=== PATIENT | female | born 1990 ===

== ENCOUNTER 2018-05-13 22:14 | Inpatient (IN) | payer SELFPAY ==
[2018-05-13] MEDS ORDERED: Dextrose 50% SYRINGE Inj (50 ml) ONE (22:52)
--- NOTE | 2018-05-13 22:56 | ED PDOC ---
HPI: Psych/Substance Abuse Time Seen by Provider: 05/13/18 22:27 Chief Complaint (Nursing): Psychiatric Evaluation Chief Complaint (Provider): Overdose ED Caveat: Acuity of Condition History Per: Family (Brother) History/Exam Limitations: no limitations Onset/Duration Of Symptoms: Hrs (x3) Current Symptoms Are (Timing): Still Present Suicide/Self Injury Attempted (Context): Ingestion Additional Complaint(s): 28 y/o female with no significant PMHx brought in by EMS for overdose, onset 3 hours ago. History obtained from brother due to patient acuity of condition. Brother states patient is going through "rough times" with a recent breakup and had sent him a message of her hand filled with 26 Benadryl (Sleep Aid) pills. Brother reports patient FaceTimed brother at approximately 7:40 PM and took pills while on the call. Brother states line cut immediately and began contacting patient's roommates with no response. Brother then called 911 and patient was then brought to the ED for further evaluation. Police found patient lying on the floor. Patient wrote suicide note left for family and friends stating she does not want to live anymore. Brother states she has never had a suicide attempt before and is not taking prescription meds. PMD: No Provider Past Medical History Reviewed: Historical Data, Nursing Documentation, Vital Signs Vital Signs: Last Vital Signs Temp 96.6 F L 05/13/18 22:18 Pulse 118 H 05/13/18 22:18 Resp 17 05/13/18 22:18 BP 137/102 H 05/13/18 22:18 Pulse Ox 100 05/13/18 22:18 - Medical History PMH: No Chronic Diseases - Surgical History Surgical History: No Surg Hx - Family History Family History: States: Unknown Family Hx - Social History Drugs: Prescription medications - Home Medications Home Medications: Ambulatory Orders Medication Instructions Recorded No Known Home Med 05/14/18 - Allergies Allergies/Adverse Reactions: Allergies Allergy/AdvReac Type Severity Reaction Status Date / Time No Known Allergies Allergy Verified 05/13/18 22:17 Review of Systems ROS Statement: Except As Marked, All Systems Reviewed And Found Negative Psych: Positive for: Other (Suicidal Attempt (Overdose)) Physical Exam - Reviewed Nursing Documentation Reviewed: Yes Vital Signs Reviewed: Yes - Physical Exam Appears: Negative for: Well (Drowsy but arousable to sternal rub) Head Exam: Positive for: ATRAUMATIC, NORMAL INSPECTION Skin: Positive for: Pallor Eye Exam: Positive for: Normal appearance, EOMI, PERRL ENT: Positive for: Normal ENT Inspection Neck: Positive for: Normal, Painless ROM Cardiovascular/Chest: Positive for: Tachycardia Respiratory: Positive for: Normal Breath Sounds Gastrointestinal/Abdominal: Positive for: Soft. Negative for: Tenderness Back: Positive for: Normal Inspection Extremity: Positive for: Other (Spontaneous, purposeful movements of the extremities. ) Neurologic/Psych: Negative for: Alert, Oriented - Laboratory Results Result Diagrams: 05/13/18 22:50 05/14/18 00:28 - ECG ECG Rhythm: Positive for: Sinus Tachycardia, Nonspecific Changes (Nonspecific ST changes). Negative for: ST/T Changes Rate: 106 O2 Sat by Pulse Oximetry: 100 (RA) Pulse Ox Interpretation: Normal - Critical Care Total Time (In Min): 60 Documented Critical Care: Time excludes all time spent performint seperately billable procedures Medical Decision Making Medical Decision Making: Time: 2248 A/P: 28 y/o female with suicide attempt by taking twenty-six 25 mg tablets of B enadryl -- Currently, patient is protecting airway. Not requiring intubation -- Patient on monitor -- Tox labs ordered. -- Will watch for signs of anticholinergic poisoning -- Will require ICU monitoring -- Type and Screen -- VBG -- EKG -- Acetaminophen -- Alcohol Serum -- BMP -- Urine Drug Screen -- LFT -- Salicylate -- ED Urine -- CBC with differentials -- PTT -- Prothrombin Time -- Glucose, POC -- Dextrose 50% Inj 50 ml IVP -- Tool Maintenance Worker -- 1:1 Observation -- Urinary Straight Catheterization -- Urinalysis 1AM --Patient with hypokalemia on VBG and from call from lab, K runs ordered 330AM --Patient now awake, alert, states she wants to go home --Patient not oriented to current situation --Likely anticholinergic side effect, will give ativan 2mg IV --Potassium now resulted as normal, K runs stopped --ICU aware of admission Scribe Attestation: Documented by Abdiel Woods acting as a scribe for Jared Ervin MD. Provider Scribe Attestation: All medical record entries made by the Scribe were at my direction and personally dictated by me. I have reviewed the chart and agree that the record accurately reflects my personal performance of the history, physical exam, medical decision making, and the department course for this patient. I have also personally directed, reviewed, and agree with the discharge instructions and disposition. Disposition - Clinical Impression Clinical Impression: Hypokalemia, Suicide attempt, Antihistamines overdose - Disposition Disposition Time: 01:30 Condition: SERIOUS
[2018-05-13] MEDS ORDERED: Dextrose 50% SYRINGE Inj (50 ml) IVP ONE (22:57)
[2018-05-13 23:04] LABS: BASO % 0.8 % (0.0-2.0); EOS # 0.1 K/uL (0.0-0.7); EOS % 2.4 % (0.0-4.0); HEMOGLOBIN 7.1 g/dL (12.0-16.0); LYMPH # 0.9 K/uL (1.0-4.3); LYMPH % 36.1 % (20.0-40.0); MEAN CELL VOLUME 98.4 fl (81.0-99.0); MEAN CORPUSCULAR HEMOGLOBIN 32.7 pg (27.0-31.0); MEAN CORPUSCULAR HGB CONC 33.2 g/dL (33.0-37.0); MEAN PLATELET VOLUME 7.4 fl (7.2-11.7); MONO # 0.2 K/uL (0.0-0.8); MONO % 7.6 % (0.0-10.0); NEUT # 1.3 K/uL (1.8-7.0); NEUT % 53.1 % (50.0-75.0); RBC 2.18 Mil/uL (3.80-5.20); RED CELL DISTRIBUTION WIDTH 13.6 % (11.5-14.5); WHITE BLOOD COUNT 2.5 K/uL (4.8-10.8)
[2018-05-13 23:11] LABS: INR 1.8
[2018-05-13 23:14] LABS: PARTIAL THROMBOPLASTIN TIME 37.2 Seconds (25.6-37.1)
[2018-05-13 23:16] LABS: ACETAMINOPHEN < 10.0 ug/ml (10.0-30.0); SALICYLATE < 1.0 mg/dl
[2018-05-13 23:24] LABS: URINE BILIRUBIN NEGATIVE (NEGATIVE); URINE BLOOD SMALL (NEGATIVE); URINE CLARITY CLEAR (Clear); URINE COLOR STRAW (YELLOW); URINE GLUCOSE (UA) 150 mg/dL (Normal); URINE LEUKOCYTE ESTERASE NEG Leu/uL (Negative); URINE PROTEIN 30 mg/dL (NEGATIVE); URINE UROBILINOGEN 0.2-1.0 mg/dL (0.2-1.0)
[2018-05-13 23:37] LABS: OPIATES, UR NEGATIVE (NEGATIVE); PHENCYCLIDINE, UR NEGATIVE (NEGATIVE)
[2018-05-13] MEDS ORDERED: Potassium CL 10 MEQ/50 ML 50 ML ONE (23:37)
[2018-05-13 23:40] LABS: BARBITURATES, UR NEGATIVE (NEGATIVE); BENZODIAZEPINES, UR NEGATIVE (NEGATIVE)
[2018-05-14] MEDS ORDERED: Potassium Chl 40 mEq in D5-1/2 1,000 ML IV SCH (00:15)
[2018-05-14] MEDS: Potassium CL 10 MEQ/50 ML 50 ML IVPB SCH ×3 (00:30→04:12)
[2018-05-14] MEDS ORDERED: Potassium CL 10 MEQ/50 ML 50 ML ONE (01:21)
--- NOTE | 2018-05-14 01:41 | CP.PCM.HP ---
History of Present Illness - History of Present Illness History of Present Illness: CC: Benadryl overdose HPI: This is a 28 y/o female with no chronic medical conditions who is brought in by EMS after overdose with benadryl earlier this evening in suicide attempt. Most history was from brother -- he noted she has been having some personal difficulties because of a breakup. While they were on a FaceTime call, she ap parently took 26 Benadryl pills. The brother tried to contact patient's roommates, and then called 911. Patient was found by police passed out on floor with suicide note saying she did not want to live anymore. Per brother, there have been no prior suicide attempts. Currently patient is awake, but not able to answer many questions. Does not have any complaints, and appears comfortable. ROS: Cannot obtain, as patient is not able to comprehend or answer questions clearly MHx/SHx: no significant history noted Allergies: NKDA Medications: Per med rec (not known to be on any Rx) Family Hx: Reviewed, not revealing Social Hx: Present on Admission - Present on Admission Any Indicators Present on Admission: No Past Patient History - Past Social History Drugs: Prescription medications Meds Allergies/Adverse Reactions: Allergies Allergy/AdvReac Type Severity Reaction Status Date / Time No Known Allergies Allergy Verified 05/13/18 22:17 Physical Exam - Constitutional Additional comments: awake, but still appears altered - Head Exam Head Exam: ATRAUMATIC, NORMOCEPHALIC - Eye Exam Eye Exam: EOMI - ENT Exam ENT Exam: Mucous Membranes Dry - Neck Exam Neck exam: Positive for: Full Rom - Respiratory Exam Respiratory Exam: Clear to Auscultation Bilateral, NORMAL BREATHING PATTERN - Cardiovascular Exam Cardiovascular Exam: Tachycardia, +S1, +S2 - GI/Abdominal Exam GI & Abdominal Exam: Normal Bowel Sounds, Soft - Extremities Exam Extremities exam: Positive for: normal inspection - Neurological Exam Neurological exam: Altered Additional comments: awakens, but cannot really participate in interview - Skin Skin Exam: Dry, Warm Results - Vital Signs Recent Vital Signs: Last Vital Signs Temp 96.6 F L 05/13/18 22:18 Pulse 106 H 05/13/18 23:17 Resp 17 05/13/18 22:18 BP 137/102 H 05/13/18 22:18 Pulse Ox 100 05/13/18 23:17 - Labs Result Diagrams: 05/13/18 22:50 05/14/18 00:28 Labs: Laboratory Results - last 24 hr 05/13/18 05/13/18 05/13/18 22:44 22:50 22:50 WBC 2.5 L RBC 2.18 L Hgb 7.1 L Hct 21.5 L MCV 98.4 MCH 32.7 H MCHC 33.2 RDW 13.6 Plt Count 130 MPV 7.4 Neut % (Auto) 53.1 Lymph % (Auto) 36.1 Green % (Auto) 7.6 Eos % (Auto) 2.4 Baso % (Auto) 0.8 Neut # (Auto) 1.3 L Lymph # (Auto) 0.9 L Green # (Auto) 0.2 Eos # (Auto) 0.1 Baso # (Auto) 0.0 PT INR APTT Potassium POC Glucose (mg/dL) Phosphorus Magnesium Urine Color Urine Clarity Urine pH Ur Specific [place] Urine Protein Urine Glucose (UA) Urine Ketones Urine Blood Urine Nitrate Urine Bilirubin Urine Urobilinogen Ur Leukocyte Esterase Urine RBC (Auto) Urine Microscopic WBC Salicylates < 1.0 Urine Opiates Screen Urine Methadone Screen Acetaminophen < 10.0 L Ur Barbiturates Screen Ur Phencyclidine Scrn Ur Amphetamines Screen U Benzodiazepines Scrn U Oth Cocaine Metabols U Cannabinoids Screen Blood Type O POSITIVE Antibody Screen Negative BBK History Checked No verified bt 05/13/18 05/13/18 05/13/18 22:50 22:50 23:08 WBC RBC Hgb Hct MCV MCH MCHC RDW Plt Count MPV Neut % (Auto) Lymph % (Auto) Green % (Auto) Eos % (Auto) Baso % (Auto) Neut # (Auto) Lymph # (Auto) Green # (Auto) Eos # (Auto) Baso # (Auto) PT 20.0 H INR 1.8 APTT 37.2 H Potassium POC Glucose (mg/dL) 63 L Phosphorus Magnesium Urine Color Urine Clarity Urine pH Ur Specific [place] Urine Protein Urine Glucose (UA) Urine Ketones Urine Blood Urine Nitrate Urine Bilirubin Urine Urobilinogen Ur Leukocyte Esterase Urine RBC (Auto) Urine Microscopic WBC Salicylates Urine Opiates Screen Negative Urine Methadone Screen Negative Acetaminophen Ur Barbiturates Screen Negative Ur Phencyclidine Scrn Negative Ur Amphetamines Screen Negative U Benzodiazepines Scrn Negative U Oth Cocaine Metabols Negative U Cannabinoids Screen Negative Blood Type Antibody Screen BBK History Checked 05/13/18 05/14/18 23:08 00:28 WBC RBC Hgb Hct MCV MCH MCHC RDW Plt Count MPV Neut % (Auto) Lymph % (Auto) Green % (Auto) Eos % (Auto) Baso % (Auto) Neut # (Auto) Lymph # (Auto) Green # (Auto) Eos # (Auto) Baso # (Auto) PT INR APTT Potassium 4.0 POC Glucose (mg/dL) Phosphorus 4.7 H Magnesium 2.1 Urine Color Straw Urine Clarity Clear Urine pH 6.0 Ur Specific [place] 1.011 Urine Protein 30 Urine Glucose (UA) 150 Urine Ketones Negative Urine Blood Small Urine Nitrate Negative Urine Bilirubin Negative Urine Urobilinogen 0.2-1.0 Ur Leukocyte Esterase Neg Urine RBC (Auto) 1 Urine Microscopic WBC < 1 Salicylates Urine Opiates Screen Urine Methadone Screen Acetaminophen Ur Barbiturates Screen Ur Phencyclidine Scrn Ur Amphetamines Screen U Benzodiazepines Scrn U Oth Cocaine Metabols U Cannabinoids Screen Blood Type Antibody Screen BBK History Checked - EKG Data EKG comments: no qt prolongation, only tachycardia Assessment & Plan (1) Antihistamines overdose Assessment and Plan: 28 y/o female with suicide attempt with benadryl; noted to have hypo K (severe). -admit to ICU -NPO, cont IVF -K is being repleted, re-check in AM -Serial EKGs to monitor Qtc prolongation per poison control -Psych consult when patient is awake and coherent -Patient does have some anemia -- if it has not been worked up, can be worked up as outpatient, no acute bleeding -DVT PPx -- SQ Lovenox Status: Acute (2) Hypokalemia Status: Acute (3) Suicide attempt Status: Acute (4) Anemia Status: Acute (5) DVT prophylaxis Status: Acute
[2018-05-14 02:28] LABS: BLOOD UREA NITROGEN 10 mg/dl (7-17); CALCIUM 9.8 mg/dL (8.4-10.2); GFR NON-AFRICAN AMERICAN > 60
[2018-05-14 02:29] LABS: ALBUMIN 4.4 g/dL (3.5-5.0)
[2018-05-14 02:30] LABS: ALT/SGPT 44 U/L (9-52); AST/SGOT 58 U/L (14-36); BILIRUBIN,DIRECT 0.3 mg/ml (0.0-0.4)
[2018-05-14] MEDS ORDERED: Sodium Chloride 0.9% 1,000 ML IV SCH (04:15)
[2018-05-14 04:55] VITALS: BMI 25.9
[2018-05-14 05:53] LABS: HEMOGLOBIN 15.8 g/dL (12.0-16.0); MEAN CELL VOLUME 96.1 fl (81.0-99.0); MEAN CORPUSCULAR HGB CONC 34.3 g/dL (33.0-37.0); RBC 4.8 Mil/uL (3.80-5.20); RED CELL DISTRIBUTION WIDTH 13.9 % (11.5-14.5); WHITE BLOOD COUNT 10.9 K/uL (4.8-10.8)
[2018-05-14 05:55] LABS: ALB/GLOB RATIO 1.1 (1.0-2.1); ALBUMIN 4.6 g/dL (3.5-5.0); ALT/SGPT 47 U/L (9-52); AST/SGOT 60 U/L (14-36); BLOOD UREA NITROGEN 10 mg/dl (7-17); GFR NON-AFRICAN AMERICAN > 60
--- NOTE | 2018-05-14 06:56 | CARD ---
APPROVED REPORT Date of service: 05/14/2018 EKG Measurement Heart [id number] <Conclusion> Sinus tachycardia Rightward axis Borderline ECG
[2018-05-14] MEDS ORDERED: Multivitamin (MVI) 10 ML, Thiamine 100 MG, Folic Acid 1 MG in Dextrose 5%/0.45% NS 1,00... IV ONE (07:30)
--- NOTE | 2018-05-14 07:44 | CARD ---
APPROVED REPORT Date of service: 05/14/2018 EKG Measurement Heart [id number] <Conclusion> Sinus tachycardia Otherwise normal ECG
--- NOTE | 2018-05-14 07:48 | CARD ---
APPROVED REPORT Date of service: 05/13/2018 EKG Measurement Heart [id number] <Conclusion> Sinus tachycardia Rightward axis Nonspecific ST changes Abnormal ECG
[2018-05-14 08:18] LABS: VENOUS BLOOD GAS BASE EXCESS -12.4 mmol/L (0.0-2.0); VENOUS BLOOD GAS PCO2 25 mmHg (40-60); VENOUS BLOOD GAS PO2 25 mm/Hg (30-55); VENOUS BLOOD PH 7.31 (7.32-7.43)
--- NOTE | 2018-05-14 10:10 | CT ---
Date of service: 05/13/2018 PROCEDURE: CT Cervical Spine without contrast HISTORY: overdose, unconcious on ground [employer] COMPARISON: None available. TECHNIQUE: Axial computed tomography images were obtained of the cervical spine without the use of intravenous contrast. Coronal and sagittal reformatted images were created and reviewed. Radiation dose: Total exam DLP = 323 mGy-cm. This CT exam was performed using one or more of the following dose reduction techniques: Automated exposure control, adjustment of the mA and/or kV according to patient size, and/or use of iterative reconstruction technique. FINDINGS: VERTEBRAE: No fracture. Normal alignment. No destructive bony lesion. DISCS/SPINAL CANAL/NEURAL FORAMINA: No significant central canal or neural foraminal stenosis. Discs heights are grossly preserved. PARASPINAL SOFT TISSUES: Unremarkable. OTHER FINDINGS: None. IMPRESSION: Unremarkable CT of the cervical spine. Concordant results (preliminary interpretation) provided by [facility].
--- NOTE | 2018-05-14 10:12 | RAD ---
Date of service: 05/13/2018 HISTORY: overdose COMPARISON: No prior. FINDINGS: LUNGS: No active pulmonary disease. PLEURA: No significant pleural effusion identified, no pneumothorax apparent. CARDIOVASCULAR: Normal. OSSEOUS STRUCTURES: No significant abnormalities. VISUALIZED UPPER ABDOMEN: Normal. OTHER FINDINGS: None. IMPRESSION: No active disease.
--- NOTE | 2018-05-14 10:12 | CT ---
Date of service: 05/13/2018 PROCEDURE: CT HEAD WITHOUT CONTRAST. HISTORY: overdose, unconcious on the floor SET ILLUSTRATOR COMPARISON: None available. TECHNIQUE: Axial computed tomography images were obtained through the head/brain without intravenous contrast. Radiation dose: Total exam DLP = 786 mGy-cm. This CT exam was performed using one or more of the following dose reduction techniques: Automated exposure control, adjustment of the mA and/or kV according to patient size, and/or use of iterative reconstruction technique. FINDINGS: HEMORRHAGE: No intracranial hemorrhage. BRAIN: No mass effect or edema. No atrophy or chronic microvascular ischemic changes. VENTRICLES: Unremarkable. No hydrocephalus. CALVARIUM: Unremarkable. PARANASAL SINUSES: Unremarkable as visualized. No significant inflammatory changes. MASTOID AIR CELLS: Unremarkable as visualized. No inflammatory changes. OTHER FINDINGS: None. IMPRESSION: Normal CT of the Head. Concordant results (preliminary interpretation) provided by [facility].
[2018-05-14] MEDS: Enoxaparin 40 mg Syringe SC SCH (11:43)
[2018-05-14] MEDS ORDERED: Influenza Vaccine 60 MCG/0.5 ML SYR (3 yr & up) IM ONE (11:51)
[2018-05-14 16:32] LABS: BASO # 0.1 K/uL (0.0-0.2); BASO % 0.8 % (0.0-2.0); EOS # 0.1 K/uL (0.0-0.7); EOS % 0.4 % (0.0-4.0); HEMOGLOBIN 14.4 g/dL (12.0-16.0); LYMPH # 2.1 K/uL (1.0-4.3); LYMPH % 16.4 % (20.0-40.0); MEAN CELL VOLUME 95.2 fl (81.0-99.0); MEAN CORPUSCULAR HEMOGLOBIN 32.4 pg (27.0-31.0); MEAN PLATELET VOLUME 7.8 fl (7.2-11.7); MONO % 8.1 % (0.0-10.0); NEUT # 9.3 K/uL (1.8-7.0); NEUT % 74.3 % (50.0-75.0); RBC 4.44 Mil/uL (3.80-5.20); RED CELL DISTRIBUTION WIDTH 13.8 % (11.5-14.5); WHITE BLOOD COUNT 12.5 K/uL (4.8-10.8)
--- NOTE | 2018-05-14 17:17 | CP.PCM.CON ---
History of Present Illness - History of Present Illness History of Present Illness: pt is a 28 y/o female currently not in formal psychiatric treatment , no hx of previous psychiatric hospitalization brought in by EMS after overdose with benadryl suicide attempt. As per pt brother -- he noted she has been having some personal difficulties because of a breakup. While they were on a FaceTime call, she apparently took 26 Benadryl pills. The brother tried to contact patient's roommates, and then called 911. Patient was found by police passed out on floor with suicide note saying she did not want to live anymore. pt on evaluation, very guarded and evasive reported she had no previous psychiatric treatment yet received counseling for few times at age 16 due to difficulties with relations with peers, . when asked why she is in the hospital pt denied any suicidal ideation or attempt denied overdose and denied leaving any suicidal notes , althought there is a note in the chart in which the patient has written arrangments for her , pt speech throughout the interview is very un derproductive , she stated she does not need any psychiatric help, does not feel comfortable to talk and refused to be admitted to the psychiatric unit as she denies any symptoms of depression, minimizing her recent suicide attempt and stating it was misunderstood pt denied any current psychotic symptoms , denied substance use , alcohol level noted on admission to be 290 spoke with mother atbed side upon pt consent who reported pt has taiwo severely depressed lately due to an unstable relationship Past Patient History - Past Medical History & Family History Past Medical History?: Yes - Past Social History Smoking Status: Never Smoked - MUSCULOSKELETAL/RHEUMATOLOGICAL Hx Falls: Yes - PSYCHIATRIC Hx Substance Use: No Meds Allergies/Adverse Reactions: Allergies Allergy/AdvReac Type Severity Reaction Status Date / Time No Known Allergies Allergy Verified 05/13/18 22:17 - Medications Medications: Current Medications Enoxaparin Sodium (Lovenox) 40 mg SC DAILY JUDSON; Protocol Last Admin: 05/14/18 11:43 Dose: Not Given Sodium Chloride (Sodium Chloride 0.9%) 1,000 mls @ 999 mls/hr IV .Q1H1M JUDSON Stop: 05/15/18 04:12 Last Admin: 05/14/18 04:02 Dose: 999 mls/hr Multivitamins/Vitamin C 10 ml/Thiamine HCl 100 mg/ Folic Acid 1 mg/ Dextro se/Sodium Chloride 1,011.2 mls @ 100 mls/hr IV .Q10H7M ONE Stop: 05/14/18 17:36 Last Admin: 05/14/18 09:10 Dose: 100 mls/hr Lorazepam (Ativan) 1 mg IVP Q6H PRN PRN Reason: anxiety/agitation/withdrawal Physical Exam - Psychiatric Exam Additional comments: pt seen in bed , guarded evasive poor eye contact speech underproductive , mood reported fine affect constricted , depressed pt denied her recent suicide attempt denied suicidal or homicidal ideation, denied perceptual disturbances, poor insight and poor impulse control Results - Vital Signs Recent Vital Signs: Last Vital Signs Temp 99.1 F 05/14/18 16:00 Pulse 105 H 05/14/18 16:00 Resp 22 05/14/18 16:00 BP 115/48 L 05/14/18 16:00 Pulse Ox 100 05/14/18 16:00 - Labs Result Diagrams: 05/14/18 04:45 05/14/18 04:45 Labs: Laboratory Results - last 24 hr 05/13/18 05/13/18 05/13/18 22:44 22:50 22:50 WBC 2.5 L RBC 2.18 L Hgb 7.1 L Hct 21.5 L MCV 98.4 MCH 32.7 H MCHC 33.2 RDW 13.6 Plt Count 130 MPV 7.4 Neut % (Auto) 53.1 Lymph % (Auto) 36.1 [place] % (Auto) 7.6 Eos % (Auto) 2.4 Baso % (Auto) 0.8 Neut # (Auto) 1.3 L Lymph # (Auto) 0.9 L [place] # (Auto) 0.2 Eos # (Auto) 0.1 Baso # (Auto) 0.0 PT INR APTT pO2 VBG pH VBG pCO2 VBG HCO3 VBG Total CO2 VBG O2 Sat (Calc) VBG Base Excess VBG Potassium Sodium Chloride Glucose Lactate FiO2 Crit Value Called To Crit Value Called By Crit Value Read Back Blood Gas Notified Time Potassium Carbon Dioxide Anion Gap BUN Creatinine Est GFR ( Amer) Est GFR (Non-Af Amer) POC Glucose (mg/dL) Random Glucose Calcium Phosphorus Magnesium Total Bilirubin Direct Bilirubin AST ALT Alkaline Phosphatase Total Protein Albumin Globulin Albumin/Globulin Ratio Venous Blood Potassium Urine Color Urine Clarity Urine pH Ur Specific [place] Urine Protein Urine Glucose (UA) Urine Ketones Urine Blood Urine Nitrate Urine Bilirubin Urine Urobilinogen Ur Leukocyte Esterase Urine RBC (Auto) Urine Microscopic WBC Salicylates < 1.0 Urine Opiates Screen Urine Methadone Screen Acetaminophen < 10.0 L Ur Barbiturates Screen Ur Phencyclidine Scrn Ur Amphetamines Screen U Benzodiazepines Scrn U Oth Cocaine Metabols U Cannabinoids Screen Alcohol, Quantitative Blood Type O POSITIVE Blood Type Confirm Antibody Screen Negative BBK History Checked No verified bt 05/13/18 05/13/18 05/13/18 22:50 22:50 23:08 WBC RBC Hgb Hct MCV MCH MCHC RDW Plt Count MPV Neut % (Auto) Lymph % (Auto) [place] % (Auto) Eos % (Auto) Baso % (Auto) Neut # (Auto) Lymph # (Auto) [place] # (Auto) Eos # (Auto) Baso # (Auto) PT 20.0 H INR 1.8 APTT 37.2 H pO2 VBG pH VBG pCO2 VBG HCO3 VBG Total CO2 VBG O2 Sat (Calc) VBG Base Excess VBG Potassium Sodium Chloride Glucose Lactate FiO2 Crit Value Called To Crit Value Called By Crit Value Read Back Blood Gas Notified Time Potassium Carbon Dioxide Anion Gap BUN Creatinine Est GFR ( Amer) Est GFR (Non-Af Amer) POC Glucose (mg/dL) 63 L Random Glucose Calcium Phosphorus Magnesium Total Bilirubin Direct Bilirubin AST ALT Alkaline Phosphatase Total Protein Albumin Globulin Albumin/Globulin Ratio Venous Blood Potassium Urine Color Urine Clarity Urine pH Ur Specific [place] Urine Protein Urine Glucose (UA) Urine Ketones Urine Blood Urine Nitrate Urine Bilirubin Urine Urobilinogen Ur Leukocyte Esterase Urine RBC (Auto) Urine Microscopic WBC Salicylates Urine Opiates Screen Negative Urine Methadone Screen Negative Acetaminophen Ur Barbiturates Screen Negative Ur Phencyclidine Scrn Negative Ur Amphetamines Screen Negative U Benzodiazepines Scrn Negative U Oth Cocaine Metabols Negative U Cannabinoids Screen Negative Alcohol, Quantitative Blood Type Blood Type Confirm Antibody Screen BBK History Checked 05/13/18 05/13/18 05/13/18 23:08 23:10 23:58 WBC RBC Hgb Hct MCV MCH MCHC RDW Plt Count MPV Neut % (Auto) Lymph % (Auto) [place] % (Auto) Eos % (Auto) Baso % (Auto) Neut # (Auto) Lymph # (Auto) [place] # (Auto) Eos # (Auto) Baso # (Auto) PT INR APTT pO2 25 L VBG pH 7.31 L VBG pCO2 25 L VBG HCO3 14.4 VBG Total CO2 13.4 L VBG O2 Sat (Calc) 41.4 VBG Base Excess -12.4 L VBG Potassium 1.1 L* Sodium 151.0 H Chloride 131.0 H Glucose 36 L* Lactate 0.6 L FiO2 21.0 Crit Value Called To Dr sandi cueva Crit Value Called By 292 Crit Value Read Back Y Blood Gas Notified Time 2314 Potassium Carbon Dioxide Anion Gap BUN Creatinine Est GFR ( Amer) Est GFR (Non-Af Amer) POC Glucose (mg/dL) 97 Random Glucose Calcium Phosphorus Magnesium Total Bilirubin Direct Bilirubin AST ALT Alkaline Phosphatase Total Protein Albumin Globulin Albumin/Globulin Ratio Venous Blood Potassium 1.1 L* Urine Color Straw Urine Clarity Clear Urine pH 6.0 Ur Specific [place] 1.011 Urine Protein 30 Urine Glucose (UA) 150 Urine Ketones Negative Urine Blood Small Urine Nitrate Negative Urine Bilirubin Negative Urine Urobilinogen 0.2-1.0 Ur Leukocyte Esterase Neg Urine RBC (Auto) 1 Urine Microscopic WBC < 1 Salicylates Urine Opiates Screen Urine Methadone Screen Acetaminophen Ur Barbiturates Screen Ur Phencyclidine Scrn Ur Amphetamines Screen U Benzodiazepines Scrn U Oth Cocaine Metabols U Cannabinoids Screen Alcohol, Quantitative Blood Type Blood Type Confirm Antibody Screen BBK History Checked 05/14/18 05/14/18 05/14/18 00:28 04:45 04:45 WBC 10.9 H D RBC 4.80 Hgb 15.8 D Hct 46.1 MCV 96.1 D MCH 33.0 H MCHC 34.3 RDW 13.9 Plt Count 284 D MPV Neut % (Auto) Lymph % (Auto) [place] % (Auto) Eos % (Auto) Baso % (Auto) Neut # (Auto) Lymph # (Auto) [place] # (Auto) Eos # (Auto) Baso # (Auto) PT INR APTT pO2 VBG pH VBG pCO2 VBG HCO3 VBG Total CO2 VBG O2 Sat (Calc) VBG Base Excess VBG Potassium Sodium 146 145 Chloride 106 107 Glucose Lactate FiO2 Crit Value Called To Crit Value Called By Crit Value Read Back Blood Gas Notified Time Potassium 4.0 4.2 Carbon Dioxide 26 24 Anion Gap 18 18 BUN 10 10 Creatinine 0.7 0.8 Est GFR ( Amer) > 60 > 60 Est GFR (Non-Af Amer) > 60 > 60 POC Glucose (mg/dL) Random Glucose 72 121 H Calcium 9.8 10.0 Phosphorus 4.7 H Magnesium 2.1 Total Bilirubin 0.3 0.3 Direct Bilirubin 0.3 AST 58 H 60 H ALT 44 47 Alkaline Phosphatase 62 64 Total Protein 8.7 H 8.9 H Albumin 4.4 4.6 Globulin 4.3 H 4.3 H Albumin/Globulin Ratio 1.0 1.1 Venous Blood Potassium Urine Color Urine Clarity Urine pH Ur Specific [place] Urine Protein Urine Glucose (UA) Urine Ketones Urine Blood Urine Nitrate Urine Bilirubin Urine Urobilinogen Ur Leukocyte Esterase Urine RBC (Auto) Urine Microscopic WBC Salicylates Urine Opiates Screen Urine Methadone Screen Acetaminophen Ur Barbiturates Screen Ur Phencyclidine Scrn Ur Amphetamines Screen U Benzodiazepines Scrn U Oth Cocaine Metabols U Cannabinoids Screen Alcohol, Quantitative 292 H Blood Type Blood Type Confirm Antibody Screen BBK History Checked 05/14/18 05:00 WBC RBC Hgb Hct MCV MCH MCHC RDW Plt Count MPV Neut % (Auto) Lymph % (Auto) [place] % (Auto) Eos % (Auto) Baso % (Auto) Neut # (Auto) Lymph # (Auto) [place] # (Auto) Eos # (Auto) Baso # (Auto) PT INR APTT pO2 VBG pH VBG pCO2 VBG HCO3 VBG Total CO2 VBG O2 Sat (Calc) VBG Base Excess VBG Potassium Sodium Chloride Glucose Lactate FiO2 Crit Value Called To Crit Value Called By Crit Value Read Back Blood Gas Notified Time Potassium Carbon Dioxide Anion Gap BUN Creatinine Est GFR ( Amer) Est GFR (Non-Af Amer) POC Glucose (mg/dL) Random Glucose Calcium Phosphorus Magnesium Total Bilirubin Direct Bilirubin AST ALT Alkaline Phosphatase Total Protein Albumin Globulin Albumin/Globulin Ratio Venous Blood Potassium Urine Color Urine Clarity Urine pH Ur Specific [place] Urine Protein Urine Glucose (UA) Urine Ketones Urine Blood Urine Nitrate Urine Bilirubin Urine Urobilinogen Ur Leukocyte Esterase Urine RBC (Auto) Urine Microscopic WBC Salicylates Urine Opiates Screen Urine Methadone Screen Acetaminophen Ur Barbiturates Screen Ur Phencyclidine Scrn Ur Amphetamines Screen U Benzodiazepines Scrn U Oth Cocaine Metabols U Cannabinoids Screen Alcohol, Quantitative Blood Type Blood Type Confirm O POSITIVE Antibody Screen BBK History Checked Assessment & Plan - Assessment and Plan (Free Text) Assessment: major depression severe alcohol abuse Plan: pt at current mental status continues to be a high suicide risk, pt refusing psychiatric treatment , will be referred to screening by [facility] for involuntary admission continue 1:1 observation for suicide risk
[2018-05-15 06:39] LABS: HEMOGLOBIN 13.2 g/dL (12.0-16.0); MEAN CELL VOLUME 96.2 fl (81.0-99.0); MEAN CORPUSCULAR HGB CONC 34.3 g/dL (33.0-37.0); RED CELL DISTRIBUTION WIDTH 13.5 % (11.5-14.5); WHITE BLOOD COUNT 7.2 K/uL (4.8-10.8)
[2018-05-15 06:50] LABS: BLOOD UREA NITROGEN 11 mg/dl (7-17); CALCIUM 8.8 mg/dL (8.4-10.2); GFR NON-AFRICAN AMERICAN > 60
[2018-05-15] MEDS: Enoxaparin 40 mg Syringe SC SCH (08:47)
--- NOTE | 2018-05-15 09:42 | CP.PCM.PN ---
Addendum entered and electronically signed by Maeve Bernard MD 05/15/18 13:27: Patient seen bedside . All chart and clinical data reviewed . Case discussed with resident .Agree with assessment and plan. Patient refusing voluntary psych admission and refused by [facility] for involuntary admission Will re consult again [facility] since patient is suicidal Waiting eval Original Note: Subjective - Date & Time of Evaluation Date of Evaluation: 05/15/18 Time of Evaluation: 09:42 - Subjective Subjective: Patient seen and examined at bedside. She is in no acute distress. She reports feeling well without any complaints. Patient denies suicidal ideation and plan during interview but is hesitant with holding a conversation. She denies chest pain, shortness of breath, abdominal pain, weakness, dizziness, and diarrhea. Objective - Vital Signs/Intake and Output Vital Signs (last 24 hours): Temp Pulse Resp BP Pulse Ox 97.7 F 75 19 106/67 98 05/15/18 08:04 05/15/18 08:04 05/15/18 08:04 05/15/18 08:04 05/15/18 08:04 - Medications Medications: Current Medications Enoxaparin Sodium (Lovenox) 40 mg SC DAILY JUDSON; Protocol Last Admin: 05/15/18 08:47 Dose: 40 mg Dextrose/Sodium Chloride (Dextrose 5%-0.9% Ns 500 Ml) 1,000 mls @ 100 mls/hr IV .Q10H JUDSON Stop: 05/15/18 17:53 Last Admin: 05/15/18 05:26 Dose: 100 mls/hr Lorazepam (Ativan) 1 mg IVP Q6H PRN PRN Reason: anxiety/agitation/withdrawal - Labs Labs: 05/15/18 05:50 05/15/18 05:50 PT 20.0 Seconds (9.8-13.1) H 05/13/18 22:50 INR 1.8 05/13/18 22:50 APTT 37.2 Seconds (25.6-37.1) H 05/13/18 22:50 - Constitutional Appears: Well, Non-toxic, No Acute Distress - ENT Exam ENT Exam: Mucous Membranes Moist - Respiratory Exam Respiratory Exam: Clear to Ausculation Bilateral, NORMAL BREATHING PATTERN. absent: Chest Wall Tenderness, Decreased Breath Sounds, Rales, Rhonchi, Wheezes, Respiratory Distress - Cardiovascular Exam Cardiovascular Exam: REGULAR RHYTHM, +S1, +S2. absent: Clicks, Diastolic murmur, Gallop, Irregular Rhythm, JVD, Rubs, Murmur - GI/Abdominal Exam GI & Abdominal Exam: Soft, Normal Bowel Sounds. absent: Distended, Firm, Guarding, Rigid, Tenderness, Mass, Organomegaly - Extremities Exam Extremities Exam: Normal Inspection. absent: Calf Tenderness, Joint Swelling, Pedal Edema, Tenderness - Neurological Exam Neurological Exam: Alert, Awake, Oriented x3 - Psychiatric Exam Psychiatric exam: Flat Affect. absent: Homicidal Ideation, Suicidal Ideation - Skin Skin Exam: Dry, Intact, Normal Color, Warm Assessment and Plan - Assessment and Plan (Free Text) Assessment: 28 y/o female with suicide attempt with benadryl; noted to have hypo K (severe) currently admitted involuntarily due to suicidal ideation to be re-evaluated by [facility] for involuntary admission. Plan: 1. Suicide attempt- Bendryl overdose. - Patient is now on Med/Surg. -Serial EKGs to monitor Qtc prolongation per poison control -Psych consult, appreciated- [facility] denied the patient. Requesting patient to be re-screened for involuntary psychiatric admission. - Continue 1:1 for safety. 2. Hypokalemia Acute - Potassium- 3.7 05/15 - Continue to monitor 3. Alcohol abuse Chronic - Alcohol level 292 - 05/14 - Continue to monitor electrolyte. 4. DVT PPx SQ Lovenox
--- NOTE | 2018-05-15 11:09 | CP.PCM.CON ---
History of Present Illness - History of Present Illness History of Present Illness: Psychiatry consult follow-up note HPI: 28 yo female presents s/p suicide attempt by overdose on Benadryl, was found by police with a suicide note stating that she did not want to live anymore. Patient continues to refuse psychiatric treatment or hospitalization. She continues to minimize her suicide attempt, stating "I just had a bad day" and "I didn't want to feel sad anymore." No AH/VH. On evaluation, patient is evasive and apathetic w/ continued depressed affect. Impression: 28 yo female presents s/p suicide attempt w/ suicide note; patient is currently refusing all psychiatric treatment and medications. -Recommend patient be re-screened for involuntary psychiatric admission -Continue 1:1 for safety Past Patient History - Past Medical History & Family History Past Medical History?: Yes - Past Social History Smoking Status: Never Smoked - MUSCULOSKELETAL/RHEUMATOLOGICAL Hx Falls: Yes - PSYCHIATRIC Hx Substance Use: No Meds Allergies/Adverse Reactions: Allergies Allergy/AdvReac Type Severity Reaction Status Date / Time No Known Allergies Allergy Verified 05/13/18 22:17 - Medications Medications: Current Medications Enoxaparin Sodium (Lovenox) 40 mg SC DAILY JUDSON; Protocol Last Admin: 05/15/18 08:47 Dose: 40 mg Dextrose/Sodium Chloride (Dextrose 5%-0.9% Ns 500 Ml) 1,000 mls @ 100 mls/hr IV .Q10H JUDSON Stop: 05/15/18 17:53 Last Admin: 05/15/18 05:26 Dose: 100 mls/hr Lorazepam (Ativan) 1 mg IVP Q6H PRN PRN Reason: anxiety/agitation/withdrawal Results - Vital Signs Recent Vital Signs: Last Vital Signs Temp 97.7 F 05/15/18 08:04 Pulse 75 05/15/18 08:04 Resp 19 05/15/18 08:04 BP 106/67 05/15/18 08:04 Pulse Ox 98 05/15/18 08:04 - Labs Result Diagrams: 05/15/18 05:50 05/15/18 05:50 Labs: Laboratory Results - last 24 hr 05/14/18 05/14/18 05/15/18 15:43 23:34 03:32 WBC 12.5 H RBC 4.44 Hgb 14.4 Hct 42.2 MCV 95.2 MCH 32.4 H MCHC 34.0 RDW 13.8 Plt Count 260 MPV 7.8 Neut % (Auto) 74.3 Lymph % (Auto) 16.4 L [place] % (Auto) 8.1 Eos % (Auto) 0.4 Baso % (Auto) 0.8 Neut # (Auto) 9.3 H Lymph # (Auto) 2.1 [place] # (Auto) 1.0 H Eos # (Auto) 0.1 Baso # (Auto) 0.1 Sodium Potassium Chloride Carbon Dioxide Anion Gap BUN Creatinine Est GFR ( Amer) Est GFR (Non-Af Amer) POC Glucose (mg/dL) 91 107 Random Glucose Calcium 05/15/18 05/15/18 05:50 05:50 WBC 7.2 RBC 4.00 Hgb 13.2 Hct 38.5 MCV 96.2 MCH 33.0 H MCHC 34.3 RDW 13.5 Plt Count 226 MPV Neut % (Auto) Lymph % (Auto) [place] % (Auto) Eos % (Auto) Baso % (Auto) Neut # (Auto) Lymph # (Auto) [place] # (Auto) Eos # (Auto) Baso # (Auto) Sodium 141 Potassium 3.7 Chloride 107 Carbon Dioxide 30 Anion Gap 8 L BUN 11 Creatinine 0.8 Est GFR ( Amer) > 60 Est GFR (Non-Af Amer) > 60 POC Glucose (mg/dL) Random Glucose 102 Calcium 8.8
[2018-05-16 06:41] LABS: HEMOGLOBIN 14.4 g/dL (12.0-16.0); MEAN CELL VOLUME 95.9 fl (81.0-99.0); MEAN CORPUSCULAR HEMOGLOBIN 32.4 pg (27.0-31.0); MEAN CORPUSCULAR HGB CONC 33.8 g/dL (33.0-37.0); RBC 4.43 Mil/uL (3.80-5.20); RED CELL DISTRIBUTION WIDTH 13.2 % (11.5-14.5); WHITE BLOOD COUNT 5.8 K/uL (4.8-10.8)
[2018-05-16 07:10] LABS: BLOOD UREA NITROGEN 10 mg/dl (7-17); CALCIUM 9.3 mg/dL (8.4-10.2); GFR NON-AFRICAN AMERICAN > 60
[2018-05-16 08:23] VITALS: BP 99/64; PULSE 59; RESP 20; TEMP 98.1; O2SAT 98
--- NOTE | 2018-05-16 09:34 | CP.PCM.DIS ---
Addendum entered and electronically signed by Maeve Bernard MD 05/16/18 16:31: Patient seen and examined bedside .All chart and clinical data reviewed . Case discussed with resident . Agree with assessment and discharge planning . Hemodynamically stable, afebrile. No acute issues overnight. patient agrees to go to psych unit voluntarily Will discharge to psych unit for management of her depression . Original Note: Provider - Provider Date of Admission: 05/14/18 00:12 Attending physician: Marylou Rodriguez MD Consults: Psychiatry- Dr. Duff and Dr. Humphrey. Time Spent in preparation of Discharge (in minutes): 30 Diagnosis - Discharge Diagnosis (1) Suicide attempt Status: Acute (2) Anemia Status: Acute (3) Antihistamines overdose Status: Acute (4) Hypokalemia Status: Acute Hospital Course - Lab Results Lab Results: Most Recent Lab Values WBC 5.8 K/uL (4.8-10.8) 05/16/18 05:30 RBC 4.43 Mil/uL (3.80-5.20) 05/16/18 05:30 Hgb 14.4 g/dL (12.0-16.0) 05/16/18 05:30 Hct 42.4 % (34.0-47.0) 05/16/18 05:30 MCV 95.9 fl (81.0-99.0) 05/16/18 05:30 MCH 32.4 pg (27.0-31.0) H 05/16/18 05:30 MCHC 33.8 g/dL (33.0-37.0) 05/16/18 05:30 RDW 13.2 % (11.5-14.5) 05/16/18 05:30 Plt Count 222 K/uL (130-400) 05/16/18 05:30 MPV 7.8 fl (7.2-11.7) 05/14/18 15:43 Neut % (Auto) 74.3 % (50.0-75.0) 05/14/18 15:43 Lymph % (Auto) 16.4 % (20.0-40.0) L 05/14/18 15:43 Glynn % (Auto) 8.1 % (0.0-10.0) 05/14/18 15:43 Eos % (Auto) 0.4 % (0.0-4.0) 05/14/18 15:43 Baso % (Auto) 0.8 % (0.0-2.0) 05/14/18 15:43 Neut # (Auto) 9.3 K/uL (1.8-7.0) H 05/14/18 15:43 Lymph # (Auto) 2.1 K/uL (1.0-4.3) 05/14/18 15:43 Glynn # (Auto) 1.0 K/uL (0.0-0.8) H 05/14/18 15:43 Eos # (Auto) 0.1 K/uL (0.0-0.7) 05/14/18 15:43 Baso # (Auto) 0.1 K/uL (0.0-0.2) 05/14/18 15:43 PT 20.0 Seconds (9.8-13.1) H 05/13/18 22:50 INR 1.8 05/13/18 22:50 APTT 37.2 Seconds (25.6-37.1) H 05/13/18 22:50 pO2 25 mm/Hg (30-55) L 05/13/18 23:10 VBG pH 7.31 (7.32-7.43) L 05/13/18 23:10 VBG pCO2 25 mmHg (40-60) L 05/13/18 23:10 VBG HCO3 14.4 mmol/L 05/13/18 23:10 VBG Total CO2 13.4 mmol/L (22-28) L 05/13/18 23:10 VBG O2 Sat (Calc) 41.4 % (40-65) 05/13/18 23:10 VBG Base Excess -12.4 mmol/L (0.0-2.0) L 05/13/18 23:10 VBG Potassium 1.1 mmol/L (3.6-5.2) L* 05/13/18 23:10 Sodium 151.0 mmol/L (132-148) H 05/13/18 23:10 Chloride 131.0 mmol/L (98-107) H 05/13/18 23:10 Glucose 36 mg/dL (65-105) L* 05/13/18 23:10 Lactate 0.6 mmol/L (0.7-2.1) L 05/13/18 23:10 FiO2 21.0 % 05/13/18 23:10 Crit Value Called To Dr sandi cueva 05/13/18 23:10 Crit Value Called By 292 05/13/18 23:10 Crit Value Read Back Y 05/13/18 23:10 Blood Gas Notified Time 2313 05/13/18 23:10 Sodium 138 mmol/l (132-148) 05/16/18 05:30 Potassium 3.5 MMOL/L (3.6-5.0) L 05/16/18 05:30 Chloride 102 mmol/L (98-107) 05/16/18 05:30 Carbon Dioxide 31 mmol/L (22-30) H 05/16/18 05:30 Anion Gap 9 (10-20) L 05/16/18 05:30 BUN 10 mg/dl (7-17) 05/16/18 05:30 Creatinine 0.7 mg/dl (0.7-1.2) 05/16/18 05:30 Est GFR ( Amer) > 60 05/16/18 05:30 Est GFR (Non-Af Amer) > 60 05/16/18 05:30 POC Glucose (mg/dL) 107 mg/dL (65-110) 05/15/18 03:32 Random Glucose 92 mg/dL (65-105) 05/16/18 05:30 Calcium 9.3 mg/dL (8.4-10.2) 05/16/18 05:30 Phosphorus 4.7 mg/dl (2.5-4.5) H 05/14/18 00:28 Magnesium 2.1 MG/DL (1.6-2.3) 05/14/18 00:28 Total Bilirubin 0.3 mg/dl (0.2-1.3) 05/14/18 04:45 Direct Bilirubin 0.3 mg/ml (0.0-0.4) 05/14/18 00:28 AST 60 U/L (14-36) H 05/14/18 04:45 ALT 47 U/L (9-52) 05/14/18 04:45 Alkaline Phosphatase 64 U/L (38-126) 05/14/18 04:45 Total Protein 8.9 G/DL (6.3-8.2) H 05/14/18 04:45 Albumin 4.6 g/dL (3.5-5.0) 05/14/18 04:45 Globulin 4.3 gm/dL (2.2-3.9) H 05/14/18 04:45 Albumin/Globulin Ratio 1.1 (1.0-2.1) 05/14/18 04:45 Venous Blood Potassium 1.1 mmol/L (3.6-5.2) L* 05/13/18 23:10 Urine Color Straw (YELLOW) 05/13/18 23:08 Urine Clarity Clear (Clear) 05/13/18 23:08 Urine pH 6.0 (5.0-8.0) 05/13/18 23:08 Ur Specific Marshall 1.011 (1.003-1.030) 05/13/18 23:08 Urine Protein 30 mg/dL (NEGATIVE) 05/13/18 23:08 Urine Glucose (UA) 150 mg/dL (Normal) 05/13/18 23:08 Urine Ketones Negative mg/dL (NEGATIVE) 05/13/18 23:08 Urine Blood Small (NEGATIVE) 05/13/18 23:08 Urine Nitrate Negative (NEGATIVE) 05/13/18 23:08 Urine Bilirubin Negative (NEGATIVE) 05/13/18 23:08 Urine Urobilinogen 0.2-1.0 mg/dL (0.2-1.0) 05/13/18 23:08 Ur Leukocyte Esterase Neg J Luis/uL (Negative) 05/13/18 23:08 Urine RBC (Auto) 1 /hpf (0-3) 05/13/18 23:08 Urine Microscopic WBC < 1 /hpf (0-5) 05/13/18 23:08 Salicylates < 1.0 mg/dl 05/13/18 22:50 Urine Opiates Screen Negative (NEGATIVE) 05/13/18 23:08 Urine Methadone Screen Negative (NEGATIVE) 05/13/18 23:08 Acetaminophen < 10.0 ug/ml (10.0-30.0) L 05/13/18 22:50 Ur Barbiturates Screen Negative (NEGATIVE) 05/13/18 23:08 Ur Phencyclidine Scrn Negative (NEGATIVE) 05/13/18 23:08 Ur Amphetamines Screen Negative (NEGATIVE) 05/13/18 23:08 U Benzodiazepines Scrn Negative (NEGATIVE) 05/13/18 23:08 U Oth Cocaine Metabols Negative (NEGATIVE) 05/13/18 23:08 U Cannabinoids Screen Negative (NEGATIVE) 05/13/18 23:08 Alcohol, Quantitative 292 mg/dl (0-10) H 05/14/18 00:28 Blood Type O POSITIVE 05/13/18 22:44 Blood Type Confirm O POSITIVE 05/14/18 05:00 Antibody Screen Negative 05/13/18 22:44 BBK History Checked No verified bt 05/13/18 22:44 - Hospital Course Hospital Course: 28 y/o female with no chronic medical conditions who is brought in by EMS after overdose with benadryl earlier this evening in suicide attempt. Most history was from brother -- he noted she has been having some personal difficulties because of a breakup. While they were on a FaceTime call, she apparently took 26 Benadryl pills. The brother tried to contact patient's roommates, and then called 911. Patient was found by police passed out on floor with suicide note saying she did not want to live anymore. Per brother, there have been no prior suicide attempts. Currently patient is awake, but not able to answer many questions. Does not have any complaints, and appears comfortable. ROS: Cannot obtain, as patient is not able to comprehend or answer questions clearly MHx/SHx: no significant history noted Allergies: NKDA Medications: Per med rec (not known to be on any Rx) Family Hx: Reviewed, not revealing Social Hx: Patient lives with roommates, unclear smoking history, does drink EtOH but unclear quantity and frequency ED course: V/S: 98.7 ; HR: 105 ; BP: 100/53 ; O2 Sat: 99% Room air. - Medications- Potassium run was given due to hypokalemia. Ativan 2mg given to altered mental status possibly secondary to Anticholinergic overdose. - Urine toxicology positive for 292 alcohol. Floor Course: Patient was admitted to ICU and placed on 1:1 observation due to suicidal ideation. During the course of her hospital stay her mentation became better. She was transferred to the Med/ Surg floor and 1:1 observation was continued. Psychiatry evaluation and recommendations were appreciated. Patient is still suicidal given she wrote a suicide note. [facility] [place] contacted to evaluate the patient and they denied her twice. Patient was accepted to [facility] Psychiatric unit. Discharge Exam - Head Exam Head Exam: ATRAUMATIC, NORMAL INSPECTION - Eye Exam Eye Exam: Normal appearance - ENT Exam ENT Exam: Mucous Membranes Moist - Respiratory Exam Respiratory Exam: Clear to PA & Lateral, NORMAL BREATHING PATTERN, UNREMARKABLE. absent: Decreased Breath Sounds, Rales, Rhonchi, Wheezes, Respiratory Distress - Cardiovascular Exam Cardiovascular Exam: REGULAR RHYTHM, RRR, +S1, +S2. absent: Tachycardia, Gallop, Irregular Rhythm, JVD, Rubs, +S4, Systolic Murmur - GI/Abdominal Exam GI & Abdominal Exam: Normal Bowel Sounds, Soft. absent: Diminished Bowel Sounds, Distended, Firm, Guarding, Mass, Pulsatile Mass, Rebound, Rigid, Tenderness - Extremities Exam Extremities exam: normal capillary refill, normal inspection, pedal pulses present - Neurological Exam Neurological exam: Alert, Oriented x3 - Psychiatric Exam Psychiatric exam: Flat Affect Additional comments: Denies homicidal and suicidal ideation on interview but is hesitant to answer at first. - Skin Skin Exam: Dry, Intact, Normal Color, Warm Discharge Plan - Follow Up Plan Condition: SERIOUS Disposition: DISCHARGE TO PSYCH HOSPITAL Patient education suggested?: Yes Instructions: Hypokalemia (DC), Suicide Prevention, Hypokalemia (DC), Hypokalemia (GEN) Additional Instructions: follow up with primary MD outpatient resources provided by administrator social welfare. Discharge to [facility] psych. Referrals: [facility] [place] [Outside] Zee Duff MD [Medical Doctor] -
[2018-05-16] MEDS: Enoxaparin 40 mg Syringe SC SCH (10:07)
== END 2018-05-16 11:01 | DRG 918 ==
LOC: H.ER 22:14 → H.ERHOLD 05-14 00:12 → H.ICU/CCU 05-14 04:22 → H.MEDSURG1 05-14 17:35
PROVIDERS: ADMIT Internal Medicine; ATTEND Internal Medicine
DX: T45.0X2A Poisoning by antiallergic and antiemetic drugs, intentional self-harm, initial encounter (principal); F32.2 Major depressive disorder, single episode, severe without psychotic features; E87.6 Hypokalemia; D64.9 Anemia, unspecified; F10.10 Alcohol abuse, uncomplicated; Y90.8 Blood alcohol level of 240 mg/100 ml or more; R41.82 Altered mental status, unspecified

== ENCOUNTER 2018-05-16 12:11 | Inpatient (IN) | payer SELFPAY ==
[2018-05-16] MEDS ORDERED: Magnesium Hydroxide Susp 30 ml UD PO PRN (12:37)
[2018-05-16] MEDS ORDERED: DiphenhydrAMINE 50 mg/ml Inj IM PRN (12:37)
--- NOTE | 2018-05-16 17:59 | PCM.PSYCH ---
Initial Psychiatric Evaluation - Initial Psychiatric Evaluation Chief Complaint (in patient's own words): broke up with girlfriend, took overdose of benadryl told brother who call ems Patient's Reaction to Hospitalization: pt signed voluntarily to be admitted to 3np was initially admitted to icu then 6s. wrote note, on chart, reports that ex girlfriend being treated for bipolar disorder, was going to focus on her (ex girlfriend's mental health) and wanted to separate. reportedly this was a 3 year relationship, although not pt's reportedl first relationship is reportedly pt's first "significant" relationship. denies ill will towards self or others currently. denies previous psychiatric treatment than seeing healthcare social worker at pt is admittedly adopted. considers adoptive parents true parents-reportedly have seen pt since pt has been admitted. pt hs. graduate, working two jobs as information security engineer, has friends, and is currently sharing apartment with roommates. History of Present Illness and Precipitating Events: see above Current Medications: Active Medications Generic Name Dose Route Start Last Admin Trade Name Freq PRN Reason Stop Dose Admin Acetaminophen 650 mg 05/16/18 12:37 Tylenol 325mg Tab PO Q4 PRN Pain, moderate (4-7) Diphenhydramine HCl 50 mg 05/16/18 12:37 Benadryl IM Q6 PRN Extrapyramidal S/S Unable PO Diphenhydramine HCl 50 mg 05/16/18 12:37 Benadryl PO Q6 PRN Extrapyramidal Symptoms Haloperidol 5 mg 05/16/18 12:37 Haldol PO Q4 PRN Agitation Haloperidol Lactate 5 mg 05/16/18 12:37 Haldol IM Q4 PRN Agitation, Unable to Take PO Lorazepam 2 mg 05/16/18 12:37 Ativan IM Q4 PRN Anxiety/Agitation,Unable PO Lorazepam 2 mg 05/16/18 12:37 Ativan PO Q4 PRN Anxiety/Agitation Magnesium Hydroxide 30 ml 05/16/18 12:37 Milk Of Magnesia PO HS PRN Constipation Past Psychiatric History - Past Psychiatric History Prior Professional Help: healthcare social worker at child admitted adopted History of Abuse: denies History of Family Illness: denies Pertinent Medical Hx (Current Medical&Sleep Prob, Allergies): Allergies Allergy/AdvReac Type Severity Reaction Status Date / Time No Known Allergies Allergy Verified 05/13/18 22:17 Review of Systems - Psychiatric Additional comments: denies s/s depression, denies history of impulsive behavior, denies bindu vacillations in mood, denies other hx of self indjurous behavior sleeping and eating well, denies changes in work performance Mental Status Examination - Personal Presentation Personal Presentation: Looks stated age - Affect Affect: Constricted - Motor Activity Motor Activity: Calm - Reliability in Providing Information Reliability in Providing Information: Fair - Formal Thought Process Formal Thought Process: No Impairment - Hallucinations/Delusions Additional comments: denied - Obsessions/Compulsions Obsessions: No Compulsions: No - Cognitive Functions Orientation: Person, Place, Situation, Time Sensorium: Alert Attention/Concentration: Attentive Judgement: Imparied, as evidence by: Other - Risk Risk: Suicidal, Diminished functioning Additional comments: denies current was admitted for suicide attempt oeverdose tishryl DSM 5 DX - DSM 5 DSM 5 Diagnosis: adjustment disorder depressed type s/p suicide attempt od benadryl - Recommended/Plan of Treatment Treatment Recommendations and Plan of Treatment: admission per attending vital signs and clinical observation per protocol and per attending prns per protocol hospitalist consult team to further evaluate pt defers need for antidepressants at this time is verbally agreeable to remain inpt pending further evaluation discharge planning in progress Projected ELOS: 3-5 days Prognosis: guarded Discharge Plan and Discharge Criteria: safety - Smoking Cessation Smoking Cessation Initiated: No Reason for not providing: defers
--- NOTE | 2018-05-16 18:44 | PCM.BM ---
Treatment Plan Problems - Problems identified on initial assessmt Feelings of Worthlessness Date Initiated: 05/16/18 Time Initiated: 18:44 Assessment reference: NA Treatment assets and liabiliti Patient Assests: ADL independent, physically healthy Patient Liabilities: substance abuse, other (psych diagnosis) - Milieu Protocol Maintain good personal hygiene: daily Encourage regular showers, daily Remind patient to perform daily oral care, daily Assist patient to perform ADL's, every shift Encourage regular showers, every shift Remind patient to perform daily oral care, every shift Assist patient to perform ADL's Maintain personal safety: daily Educate patient to report safety concerns to staff, daily Monitor environment for contraband/sharps, every shift Educate patient to report safety concerns to staff, every shift Monitor environment for contraband/sharps Medication safety: Monitor for expected outcome, potential side effects: daily, Assess barriers to learning: daily, Assess readiness for medication education: daily Milieu Narrative: admission per attending vital signs and clinical observation per protocol and per attending prns per protocol hospitalist consult team to further evaluate pt defers need for antidepressants at this time is verbally agreeable to remain inpt pending further evaluation discharge planning in progress Discharge/Continuing Care - Treatment Team Participation Patient/Family/SO Statement: admission per attending vital signs and clinical observation per protocol and per attending prns per protocol hospitalist consult team to further evaluate pt defers need for antidepressants at this time is verbally agreeable to remain inpt pending further evaluation discharge planning in progress
--- NOTE | 2018-05-17 08:42 | PCM.PYCHPN ---
Psychiatric Progress Note - Psychiatric Progress Note Patient seen today, length of contact: pt seen and evaluated Patient Chief Complaint: pt reports feeling better and denies any depression and says that she was upset about breaking up with the girlfriend and feels better and denies suicidal ideation and regretful about taking pills but says she was intoxicated .less withdrawl symptoms. Medication Change: No Medical Record Reviewed: Yes Mental Status Examination - Cognitive Function Orientation: Person, Place, Situation, Time Attention: Poor Concentration: Poor Association: WNL Fund of Knowledge: WNL - Mood Mood: Anxious - Affect Affect: Constricted - Formal Thought Process Formal Thought Process: No Impairment - Suicidal Ideation Suicidal Ideation: No - Homicidal Ideation Homicidal Ideation: No Goal/Treatment Plan - Goal/Treatment Plan Progress Toward Problem(s) and Goals/Treatment Plan: will continue to offer pt trial of zoloft for depression and engaging pt in therapy and groups.
[2018-05-17 09:00] LABS: T4 8.24 ug/dl (5.5-11.0)
--- NOTE | 2018-05-17 14:05 | CP.PCM.CON ---
History of Present Illness - History of Present Illness History of Present Illness: medical clearance for psychiatric patient cc: Left arm swelling post iv fluids infiltration on the medical floor HPI: 28 y/o female with no chronic medical conditions who is brought in by EMS after overdose with benadryl earlier this evening in suicide attempt while she was inebriated. She was then sent to psychiatric floor after she was stable. Her only physical complaint is that she has left forearm swelling post iv fluid infiltration during medical admission. She had pain at the site yesterday, today there is no pain just swelling. no rash. ROS: all other systems reviewed adn are negative. MHx/SHx: no significant history noted Allergies: NKDA Medications: Per med rec (not known to be on any Rx) Family Hx: Reviewed, not revealing Social Hx:lives w room mates, does drink alcohol but says not to excess Review of Systems - Review of Systems All systems: reviewed and no additional remarkable complaints except Review of Systems: in hpi Past Patient History - Past Medical History & Family History Past Medical History?: Yes - Past Social History Smoking Status: Never Smoked Alcohol: Social - CARDIAC Hx Cardiac Disorders: No - PULMONARY Hx Asthma: Yes - NEUROLOGICAL Hx Neurological Disorder: No - HEENT Hx HEENT Problems: No - RENAL Hx Chronic Kidney Disease: No - ENDOCRINE/METABOLIC Hx Endocrine Disorders: No - HEMATOLOGICAL/ONCOLOGICAL Hx Blood Disorders: No - INTEGUMENTARY Hx Dermatological Problems: No - MUSCULOSKELETAL/RHEUMATOLOGICAL Hx Falls: Yes - GASTROINTESTINAL Hx Gastrointestinal Disorders: No - GENITOURINARY/GYNECOLOGICAL Hx Genitourinary Disorders: No - PSYCHIATRIC Hx Substance Use: No - SURGICAL HISTORY Hx Surgeries: No - ANESTHESIA Hx Anesthesia: No Meds Allergies/Adverse Reactions: Allergies Allergy/AdvReac Type Severity Reaction Status Date / Time No Known Allergies Allergy Verified 05/13/18 22:17 - Medications Medications: Current Medications Acetaminophen (Tylenol 325mg Tab) 650 mg PO Q4 PRN PRN Reason: Pain, moderate (4-7) Diphenhydramine HCl (Benadryl) 50 mg IM Q6 PRN PRN Reason: Extrapyramidal S/S Unable PO Diphenhydramine HCl (Benadryl) 50 mg PO Q6 PRN PRN Reason: Extrapyramidal Symptoms Haloperidol (Haldol) 5 mg PO Q4 PRN PRN Reason: Agitation Haloperidol Lactate (Haldol) 5 mg IM Q4 PRN PRN Reason: Agitation, Unable to Take PO Lorazepam (Ativan) 2 mg IM Q4 PRN PRN Reason: Anxiety/Agitation,Unable PO Lorazepam (Ativan) 2 mg PO Q4 PRN PRN Reason: Anxiety/Agitation Magnesium Hydroxide (Milk Of Magnesia) 30 ml PO HS PRN PRN Reason: Constipation Physical Exam - Constitutional Appears: Well, Non-toxic, No Acute Distress - Head Exam Head Exam: ATRAUMATIC, NORMAL INSPECTION, NORMOCEPHALIC - Eye Exam Eye Exam: Normal appearance - ENT Exam ENT Exam: Mucous Membranes Moist - Neck Exam Neck exam: Positive for: Normal Inspection - Respiratory Exam Respiratory Exam: Clear to Auscultation Bilateral, NORMAL BREATHING PATTERN. absent: Rales, Rhonchi, Wheezes - Cardiovascular Exam Cardiovascular Exam: REGULAR RHYTHM, +S1, +S2 - GI/Abdominal Exam GI & Abdominal Exam: Normal Bowel Sounds, Soft. absent: Tenderness - Extremities Exam Additional comments: left arm swelling compared to right. no rash, no redness, mild tenderness no nodules - Neurological Exam Neurological exam: Alert, Oriented x3 - Psychiatric Exam Psychiatric exam: Normal Affect - Skin Skin Exam: Normal Color Results - Vital Signs Recent Vital Signs: Last Vital Signs Temp 97.0 F L 05/17/18 09:14 Pulse 97 H 05/17/18 09:14 Resp 20 05/17/18 09:14 BP 145/74 05/17/18 09:14 Pulse Ox - Labs Labs: Laboratory Results - last 24 hr 05/17/18 07:41 Triglycerides 84 Cholesterol 214 H LDL Cholesterol Direct 92 HDL Cholesterol 82 H Thyroxine (T4) 8.24 TSH 3rd Generation 0.21 L Assessment & Plan - Assessment and Plan (Free Text) Assessment: 28 yo Female with no pmh here due to suicidal attempt with benadryl while intoxicated. 1. left arm swelling post iv infiltration - now without pain- recommend warm compress and keep arm elevated when in bed 2. Alcohol use - recommended stopping 3. Depression - recommend medications per psych
[2018-05-18 11:55] VITALS: BP 112/59; PULSE 99; RESP 18; TEMP 97.3
--- NOTE | 2018-05-18 13:52 | PCM.PYCHPN ---
Psychiatric Progress Note - Psychiatric Progress Note Patient seen today, length of contact: pt seen and evaluated Patient Chief Complaint: pt has been improved with thaerapy and adamantly denies suicidal ideation .pt reports feeling better and denies any depression and says that she was upset about breaking up with the girlfriend and feels better and denies suicidal ideation and regretful about taking pills but says she was intoxicated .less withdrawl symptoms. Medication Change: No Medical Record Reviewed: Yes Mental Status Examination - Cognitive Function Orientation: Person, Place, Situation, Time Attention: WNL Concentration: WNL Association: WNL Fund of Knowledge: WNL - Mood Mood: Neutral - Affect Affect: Broad - Formal Thought Process Formal Thought Process: No Impairment - Suicidal Ideation Suicidal Ideation: No - Homicidal Ideation Homicidal Ideation: No Goal/Treatment Plan - Goal/Treatment Plan Progress Toward Problem(s) and Goals/Treatment Plan: will continue to offer pt trial of zoloft for depression and engaging pt in therapy and groups. pt is psychiatrically stable for d/c today .
== END 2018-05-18 15:20 | disposition home or self-care (01) | DRG 881 ==
LOC: H.PSYCH 12:18
PROVIDERS: ADMIT Psychiatry & Neurology Psychiatry; ATTEND Psychiatry & Neurology Psychiatry
PROC: GZ51ZZZ Individual Psychotherapy, Behavioral (ICD-10-PCS; principal; 2018-05-16)
DX: F43.21 Adjustment disorder with depressed mood (principal); J45.909 Unspecified asthma, uncomplicated; T45.0X2D Poisoning by antiallergic and antiemetic drugs, intentional self-harm, subsequent encounter; Z91.5 Personal history of self-harm; M79.89 Other specified soft tissue disorders; T80.89XD Other complications following infusion, transfusion and therapeutic injection, subsequent encounter